=== PATIENT | female | born 1945 | race African-American/Black ===

== ENCOUNTER 2017-12-30 16:25 | Emergency (ER) | payer MEDICARE ==
[2017-12-30] MEDS ORDERED: ONDANSETRON HCL INJ/PF 4 MG/2 ML SDV IV ONE (16:45)
[2017-12-30] MEDS ORDERED: MORPHINE SULFATE 10 MG/ML INJ IV ONE (16:45)
--- NOTE | 2017-12-30 16:49 | ER Document Report ---
ED Medical Screen (RME) - General Chief Complaint: Urinary Problem Stated Complaint: PELVIC SWELLING, BURNING WITH URINATION Time Seen by Provider: 12/30/17 16:37 Mode of Arrival: Ambulatory Information source: Patient Notes: 72-year-old female presents with complaint of vaginal pain and dysuria. Patient states that she has had labial and vaginal pain for several weeks with worsening of pain today. Patient has had associated nausea, vomiting. I have greeted and performed a rapid initial assessment of this patient. A comprehensive ED assessment and evaluation of the patient, analysis of test results and completion of medical decision making process we will be contacted by additional ED providers. PHYSICAL EXAMINATION: Vital signs reviewed GENERAL: Appears to be in pain, unable to sit down. NEUROLOGICAL: Normal speech, normal gait. PSYCH: Normal mood, normal affect. TRAVEL OUTSIDE OF THE [place] IN LAST 30 DAYS: No - HPI Onset: Other Quality of pain: Throbbing Associated Symptoms: Nausea, Vomiting Exacerbated by: Sitting, Walking Relieved by: Supine Similar symptoms previously: Yes Recently seen / treated by doctor: No - Related Data Allergies/Adverse Reactions: No Known Allergies Allergy (Unverified 12/30/17 16:30) Past Medical History Renal/ Medical History: Denies: Hx Peritoneal Dialysis Physical Exam - Vital signs Vitals: Temp Pulse Resp BP 98.1 F 92 18 135/56 H 12/30/17 16:31 12/30/17 16:31 12/30/17 16:31 12/30/17 16:31 Course - Vital Signs Vital signs: Temp Pulse Resp BP Pulse Ox 98.1 F 92 18 135/56 H 12/30/17 16:31 12/30/17 16:31 12/30/17 16:31 12/30/17 16:31 Doctor's Discharge - Discharge Referrals: SANDER RICO MD [Primary Care Provider] - Follow up as needed
[2017-12-30 17:21] LABS: ABSOLUTE LYMPHOCYTES (AUTO) 0.9 10^3/uL (0.5-4.7); ABSOLUTE MONOCYTES (AUTO) 0.3 10^3/uL (0.1-1.4); ABSOLUTE NEUT (AUTO) 3.9 10^3/uL (1.7-8.2); BASOPHILS % (AUTO) 0.3 % (0-2); EOSINOPHILS % (AUTO) 0.4 % (0-6); HEMATOCRIT 38.3 % (36.0-47.0); HEMOGLOBIN 12.9 g/dL (12.0-15.5); LYMPHOCYTES % (AUTO) 17.6 % (13-45); MEAN CORPUSCULAR HEMOGLOBIN 29.9 pg (27.0-33.4); MEAN CORPUSCULAR HGB CONC 33.7 g/dL (32.0-36.0); MEAN CORPUSCULAR VOLUME 89 fl (80-97); MONOCYTES % (AUTO) 5.1 % (3-13); PLATELET COUNT 118 10^3/uL (150-450); RED BLOOD COUNT 4.33 10^6/uL (3.72-5.28); RED CELL DISTRIBUTION WIDTH 13.4 % (11.5-14.0); SEGMENTED NEUTROPHILS % (AUTO) 76.6 % (42-78); TOTAL CELLS COUNTED % (AUTO) 100 %; WHITE BLOOD COUNT 5.1 10^3/uL (4.0-10.5)
[2017-12-30 17:29] LABS: ALANINE AMINOTRANSFERASE 119 U/L (9-52); ALBUMIN 4.4 g/dL (3.5-5.0); ALKALINE PHOSPHATASE 142 U/L (38-126); ANION GAP 16 (5-19); ASPARTATE AMINO TRANSFERASE 205 U/L (14-36); BILIRUBIN,DIRECT 1.7 mg/dL (0.0-0.4); BILIRUBIN,TOTAL 2.7 mg/dL (0.2-1.3); BLOOD UREA NITROGEN 14 mg/dL (7-20); CARBON DIOXIDE 22 mmol/L (22-30); CHLORIDE 100 mmol/L (98-107); GLUCOSE 196 mg/dL (75-110); POTASSIUM 3.6 mmol/L (3.6-5.0); TOTAL PROTEIN 8.5 g/dL (6.3-8.2)
[2017-12-30 19:17] LABS: APPEARANCE,URINE SLIGHTLY-CLOUDY; BILIRUBIN,URINE NEGATIVE (NEGATIVE); GLUCOSE, URINE NEGATIVE (NEGATIVE); KETONES,URINE NEGATIVE (NEGATIVE); LEUKOCYTE ESTERASE,URINE TRACE (NEGATIVE); NITRITE,URINE NEGATIVE (NEGATIVE); PROTEIN,URINE 30 mg/dL (NEGATIVE); URINE SPECIFIC GRAVITY 1.004; UROBILINOGEN,URINE NEGATIVE mg/dL (<2.0)
[2017-12-30 19:20] LABS: COLOR,URINE DARK YELLOW
[2017-12-30] MEDS ORDERED: CEFTRIAXONE INJ 1000 MG VIAL IV ONE (19:59)
--- NOTE | 2017-12-30 20:35 | ER Document Report ---
ED General - General Chief Complaint: Urinary Problem Stated Complaint: PELVIC SWELLING, BURNING WITH URINATION Time Seen by Provider: 12/30/17 16:37 Mode of Arrival: Ambulatory Notes: Patient is a 72-year-old female with a past medical history of liver cirrhosis, hypertension, does not currently follow with her primary care doctor, who presents with concerns of pain and swelling to her vaginal area "for many months ". She states that the discomfort has gotten much worse in the last several weeks prompting her to come to the emergency department. She notes a dull, throbbing, constant pain to the vaginal area. Standing seems to worsen the pain and lying down seem she has never seen an COMPLIANCE CONSULTANT regarding this concern. She denies any vaginal bleeding. She does note dysuria but no fever or constitutional symptoms. TRAVEL OUTSIDE OF THE [place] IN LAST 30 DAYS: No - Related Data Allergies/Adverse Reactions: No Known Allergies Allergy (Unverified 12/30/17 16:30) Past Medical History - General Information source: Patient - Social History Smoking Status: Current Every Day Smoker Frequency of alcohol use: Heavy Drug Abuse: None Lives with: Family Family History: Reviewed & Not Pertinent Patient has suicidal ideation: No Patient has homicidal ideation: No Renal/ Medical History: Denies: Hx Peritoneal Dialysis Review of Systems - Review of Systems Notes: Constitutional: Negative for fever. HENT: Negative for sore throat. Eyes: Negative for visual changes. Cardiovascular: Negative for chest pain. Respiratory: Negative for shortness of breath. Gastrointestinal: Negative for abdominal pain, vomiting or diarrhea. Genitourinary: Positive for dysuria and vaginal pain Musculoskeletal: Negative for back pain. Skin: Negative for rash. Neurological: Negative for headaches, weakness or numbness. 10 point ROS negative except as marked above and in HPI. Physical Exam - Vital signs Vitals: Temp Pulse Resp BP 98.1 F 92 18 135/56 H 12/30/17 16:31 12/30/17 16:31 12/30/17 16:31 12/30/17 16:31 Interpretation: Normal Notes: PHYSICAL EXAMINATION: GENERAL: Well-appearing, well-nourished and in no acute distress. HEAD: Atraumatic, normocephalic. EYES: Pupils equal round and reactive to light, extraocular movements intact, sclera anicteric, conjunctiva are normal. ENT: nares patent, oropharynx clear without exudates. Moist mucous membranes. NECK: Normal range of motion, supple without lymphadenopathy LUNGS: Breath sounds clear to auscultation bilaterally and equal. No wheezes rales or rhonchi. HEART: Regular rate and rhythm without murmurs ABDOMEN: Soft, nontender, normoactive bowel sounds. No guarding, no rebound. No masses appreciated. : Prominent uterine prolapse, engorgement of the labia majora minora EXTREMITIES: Normal range of motion, no pitting or edema. No cyanosis. NEUROLOGICAL: No focal neurological deficits. Moves all extremities spontaneously and on command. PSYCH: Normal mood, normal affect. SKIN: Warm, Dry, normal turgor, no rashes or lesions noted. Course - Re-evaluation Re-evalutation: 12/30/17 21:11 Patient presents with signs and symptoms of chronic uterine prolapse. Urinalysis is consistent with an associated cystitis. Could alternatively be contaminant secondary to the degree of uterine prolapse. 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 I have recommended that the patient follow closely with COMPLIANCE CONSULTANT for consideration of placement of a pessary. She has been started on cephalexin and given a dose of ceftriaxone here in the emergency department for treatment of a possible urinary tract infection. Culture has been sent. At this time will discharge with return precautions and follow-up recommendations. Verbal discharge instructions given a the bedside and opportunity for questions given. Medication warnings reviewed. Patient is in agreement with this plan and has verbalized understanding of return precautions and the need for primary care follow-up in the next 24-72 hours. - Vital Signs Vital signs: Temp Pulse Resp BP Pulse Ox 98.1 F 92 18 135/56 H 12/30/17 16:31 12/30/17 16:31 12/30/17 16:31 12/30/17 16:31 - Laboratory Result Diagrams: 12/30/17 17:02 12/30/17 17:02 Laboratory results interpreted by me: 12/30/17 12/30/17 12/30/17 17:02 17:02 18:51 Plt Count 118 L Glucose 196 H Total Bilirubin 2.7 H Direct Bilirubin 1.7 H AST 205 H ALT 119 H Alkaline Phosphatase 142 H Total Protein 8.5 H Urine Protein 30 H Urine Blood LARGE H Ur Leukocyte Esterase TRACE H Discharge - Discharge Clinical Impression: Uterine prolapse Urinary tract infection Qualifiers: Urinary tract infection type: acute cystitis Hematuria presence: with hematuria Qualified Code(s): N30.01 - Acute cystitis with hematuria Condition: Good Disposition: HOME, SELF-CARE Additional Instructions: Your pain and swelling is due to a uterine prolapse which in your uterus stings down through your vaginal canal. There is a surgical correction to this and I recommend that you see the COMPLIANCE CONSULTANT listed in the paperwork as soon as possible to discuss this procedure. Your urinalysis also suggests a urinary tract infection your being started on antibiotics to treat this. Please return if you develop fever greater than 100.4 F, worsening pain, become unable to urinate, or have any other symptoms that are worrisome to you. Prescriptions: Cephalexin Monohydrate [Keflex 500 mg Capsule] 500 mg PO Q6H 5 Days capsule Referrals: SANDER RICO MD [ACTIVE STAFF] - Follow up as needed PEARL GOLDSMITH MD [ACTIVE STAFF] - Follow up tomorrow
[2017-12-30] MEDS ORDERED: HYDROCODONE/ACETAMINOPHEN 5-325 MG (6 TAB/ER DISP) PO PRN (20:56)
[2017-12-30 21:32] VITALS: BP 107/52
== END 2017-12-30 21:21 | disposition home or self-care (01) ==
LOC: ER 16:25
DX: N30.01 Acute cystitis with hematuria (principal); N81.4 Uterovaginal prolapse, unspecified; F17.200 Nicotine dependence, unspecified, uncomplicated
CPT/HCPCS: 99284; 96375; 96365; 36415; 87086; 85025; 80053; 81001; J2270; J0696; J2405; A9270

== ENCOUNTER 2018-02-11 16:33 | Emergency (ER) | payer MEDICARE, OTHER ==
[2018-02-11 16:45] VITALS: BP 151/62
--- NOTE | 2018-02-11 16:51 | ER Document Report ---
ED Medical Screen (RME) - General Chief Complaint: Urinary Retention Stated Complaint: URINE RETENTION/NEED BLADDER DRAINED Time Seen by Provider: 02/11/18 16:48 Notes: Patient is a 72-year-old female with history of bladder prolapse that presents to the emergency department for chief complaint of suprapubic pain. Discussed case with the patient's [employer] Dr. Dawkins, who stated the patient has a grade 3 /4 bladder prolapse, declined any treatments with pessary use, advised placing Mazariegos catheter, this was discussed with the patient and she was agreeable to. ROS: Other than noted above, the 12 point review of systems was reviewed with the patient and were negative, all pertinent findings are included in the HPI. PHYSICAL EXAMINATION: Vital signs reviewed. GENERAL: Elderly female, appears uncomfortable on exam HEAD: Atraumatic, normocephalic. EYES: Pupils equal round extraocular movements intact, conjunctiva are normal. ENT: Nares patent NECK: Normal range of motion CV: Heart regular rate and rhythm LUNGS: No respiratory distress Musculoskeletal: Normal range of motion NEUROLOGICAL: Normal speech PSYCH: Normal mood, normal affect. MDM: Patient seen and examined for rapid initial assessment. Vital signs reviewed. A comprehensive ED assessment and evaluation of the patient, analysis of test results and completion of the medical decision making process will be conducted by additional ED providers. *Note is created using voice recognition software and may contain spelling, syntax or grammatical errors. TRAVEL OUTSIDE OF THE [place] IN LAST 30 DAYS: No - Related Data Allergies/Adverse Reactions: No Known Allergies Allergy (Unverified 12/30/17 16:30) Past Medical History - Social History Chew tobacco use (# tins/day): No Frequency of alcohol use: None Drug Abuse: None Renal/ Medical History: Denies: Hx Peritoneal Dialysis Physical Exam - Vital signs Vitals: Temp Pulse Resp BP Pulse Ox 98.4 F 86 14 151/62 H 98 02/11/18 16:42 02/11/18 16:42 02/11/18 16:42 02/11/18 16:42 02/11/18 16:42 Course - Vital Signs Vital signs: Temp Pulse Resp BP Pulse Ox 98.4 F 86 14 151/62 H 98 02/11/18 16:42 02/11/18 16:42 02/11/18 16:42 02/11/18 16:42 02/11/18 16:42
[2018-02-11 18:38] LABS: ABSOLUTE LYMPHOCYTES (AUTO) 0.8 10^3/uL (0.5-4.7); ABSOLUTE MONOCYTES (AUTO) 0.2 10^3/uL (0.1-1.4); ABSOLUTE NEUT (AUTO) 3.3 10^3/uL (1.7-8.2); BASOPHILS % (AUTO) 0.4 % (0-2); EOSINOPHILS % (AUTO) 0.5 % (0-6); HEMATOCRIT 36.5 % (36.0-47.0); HEMOGLOBIN 12.4 g/dL (12.0-15.5); LYMPHOCYTES % (AUTO) 18.1 % (13-45); MEAN CORPUSCULAR HGB CONC 33.9 g/dL (32.0-36.0); MEAN CORPUSCULAR VOLUME 89 fl (80-97); MONOCYTES % (AUTO) 5.5 % (3-13); RED BLOOD COUNT 4.11 10^6/uL (3.72-5.28); RED CELL DISTRIBUTION WIDTH 13.5 % (11.5-14.0); SEGMENTED NEUTROPHILS % (AUTO) 75.5 % (42-78); TOTAL CELLS COUNTED % (AUTO) 100 %; WHITE BLOOD COUNT 4.3 10^3/uL (4.0-10.5)
[2018-02-11 18:46] LABS: ANION GAP 10 (5-19); BLOOD UREA NITROGEN 13 mg/dL (7-20); CALCIUM 9.7 mg/dL (8.4-10.2); CARBON DIOXIDE 27 mmol/L (22-30); CHLORIDE 103 mmol/L (98-107); GLUCOSE 140 mg/dL (75-110); POTASSIUM 4.1 mmol/L (3.6-5.0); SODIUM 140.2 mmol/L (137-145)
[2018-02-11] MEDS ORDERED: MORPHINE SULFATE 10 MG/ML INJ IV ONE (18:57)
[2018-02-11] MEDS ORDERED: ONDANSETRON HCL INJ/PF 4 MG/2 ML SDV IV ONE (18:57)
[2018-02-11 19:08] LABS: PLATELET COUNT 97 10^3/uL (150-450)
[2018-02-11] MEDS ORDERED: HYDROMORPHONE HCL INJ/PF 2 MG/ML AMPULE IV ONE (20:22)
[2018-02-11] MEDS ORDERED: LIDOCAINE 2% URO-JET 5 ML KIT MM ONE (20:23)
[2018-02-11 22:25] LABS: APPEARANCE,URINE CLEAR; BILIRUBIN,URINE NEGATIVE (NEGATIVE); COLOR,URINE RED; GLUCOSE, URINE NEGATIVE (NEGATIVE); KETONES,URINE NEGATIVE (NEGATIVE); LEUKOCYTE ESTERASE,URINE TRACE (NEGATIVE); NITRITE,URINE NEGATIVE (NEGATIVE); PROTEIN,URINE 100 mg/dL (NEGATIVE); URINE SPECIFIC GRAVITY 1.006; UROBILINOGEN,URINE NEGATIVE mg/dL (<2.0)
--- NOTE | 2018-02-11 22:30 | ER Document Report ---
ED General - General Chief Complaint: Urinary Retention Stated Complaint: URINE RETENTION/NEED BLADDER DRAINED Time Seen by Provider: 02/11/18 16:48 TRAVEL OUTSIDE OF THE [place] IN LAST 30 DAYS: No - Related Data Allergies/Adverse Reactions: No Known Allergies Allergy (Unverified 12/30/17 16:30) Past Medical History - Social History Smoking Status: Current Every Day Smoker Chew tobacco use (# tins/day): No Frequency of alcohol use: None Drug Abuse: None Family History: Reviewed & Not Pertinent Patient has suicidal ideation: No Patient has homicidal ideation: No Renal/ Medical History: Denies: Hx Peritoneal Dialysis Physical Exam - Vital signs Vitals: Temp Pulse Resp BP Pulse Ox 98.4 F 86 14 151/62 H 98 02/11/18 16:42 02/11/18 16:42 02/11/18 16:42 02/11/18 16:42 02/11/18 16:42 Course - Vital Signs Vital signs: Temp Pulse Resp BP Pulse Ox 98.4 F 86 14 151/62 H 98 02/11/18 16:42 02/11/18 16:42 02/11/18 16:42 02/11/18 16:42 02/11/18 16:42 - Laboratory Result Diagrams: 02/11/18 18:27 02/11/18 18:27 Laboratory results interpreted by me: 02/11/18 02/11/18 02/11/18 18:27 18:27 20:57 Plt Count 97 L Glucose 140 H Urine Protein 100 H Urine Blood LARGE H Ur Leukocyte Esterase TRACE H Discharge - Discharge Clinical Impression: Urinary retention, Bladder prolapse Instructions: Urinary Retention ([facility]), Mazariegos Catheter Care ([facility]) Additional Instructions: Urinalysis today does not show any signs of infection. Because of the bladder prolapse scraping of the urethra and putting in the Mazariegos catheter he may see some blood in your urine for the next few days. Please follow-up with your OB/ [facility] return to ER symptoms worsen. Referrals: CLAIRE HENDERSON MD [Primary Care Provider] - Follow up as needed
[2018-02-11] MEDS ORDERED: TRAMADOL HCL 50 MG TABLET PO ONE (22:31)
--- NOTE | 2018-02-11 22:31 | ER Document Report ---
ED General - General Chief Complaint: Urinary Retention Stated Complaint: URINE RETENTION/NEED BLADDER DRAINED Time Seen by Provider: 02/11/18 16:48 TRAVEL OUTSIDE OF THE [place] IN LAST 30 DAYS: No - HPI Patient complains to provider of: Urinary retention Notes: Patient was sent to the ER for urinary retention by [employer]. Patient was seen by triage provider notes provided below Patient is a 72-year-old female with history of bladder prolapse that presents to the emergency department for chief complaint of suprapubic pain. Discussed case with the patient's [employer] Dr. Henderson, who stated the patient has a grade 3 /4 bladder prolapse, declined any treatments with pessary use, advised placing Mazariegos catheter, this was discussed with the patient and she was agreeable to. Patient upon my evaluation looks to be significant pain. Patient states this problem has occurred before she has denied a Mazariegos catheter in the past. Upon my evaluation patient at this time is also declining a Mazariegos catheter and leg bag. Patient states she really does have a straight cath and be discharged home. Patient denies any fever chills nausea by diarrhea denies any use of over -the-counter medications. - Related Data Allergies/Adverse Reactions: No Known Allergies Allergy (Unverified 12/30/17 16:30) Past Medical History - Social History Smoking Status: Current Every Day Smoker Chew tobacco use (# tins/day): No Frequency of alcohol use: None Drug Abuse: None Family History: Reviewed & Not Pertinent Patient has suicidal ideation: No Patient has homicidal ideation: No Renal/ Medical History: Denies: Hx Peritoneal Dialysis Review of Systems - Review of Systems Constitutional: No symptoms reported EENT: No symptoms reported Cardiovascular: No symptoms reported Respiratory: No symptoms reported Gastrointestinal: No symptoms reported Genitourinary: Retention Female Genitourinary: No symptoms reported Musculoskeletal: No symptoms reported Skin: No symptoms reported Hematologic/Lymphatic: No symptoms reported Neurological/Psychological: No symptoms reported -: Yes All other systems reviewed and negative Physical Exam - Vital signs Vitals: Temp Pulse Resp BP Pulse Ox 98.4 F 86 14 151/62 H 98 02/11/18 16:42 02/11/18 16:42 02/11/18 16:42 02/11/18 16:42 02/11/18 16:42 Interpretation: Normal - General General appearance: Appears well, Alert - HEENT Head: Normocephalic, Atraumatic Eyes: Normal Pupils: PERRL - Respiratory Respiratory status: No respiratory distress Chest status: Nontender Breath sounds: Normal Chest palpation: Normal - Cardiovascular Rhythm: Regular Heart sounds: Normal auscultation Murmur: No - Abdominal Inspection: Normal Distension: No distension Bowel sounds: Normal Tenderness: Nontender Organomegaly: No organomegaly - Genitourinary Notes: Examination of the vaginal region does reveal a prolapsed - Back Back: Normal, Nontender - Extremities General upper extremity: Normal inspection, Nontender, Normal color, Normal ROM , Normal temperature General lower extremity: Normal inspection, Nontender, Normal color, Normal ROM , Normal temperature, Normal weight bearing. No: Sridhar's sign - Neurological Neuro grossly intact: Yes Cognition: Normal Orientation: AAOx4 Uriel Coma Scale Eye Opening: Spontaneous Napoleon Coma Scale Verbal: Oriented Uriel Coma Scale Motor: Obeys Commands Napoleon Coma Scale Total: 15 Speech: Normal Motor strength normal: LUE, RUE, LLE, RLE Sensory: Normal - Psychological Associated symptoms: Normal affect, Normal mood - Skin Skin Temperature: Warm Skin Moisture: Dry Skin Color: Normal Course - Re-evaluation Re-evalutation: 02/11/18 23:27 Laboratory studies not revealing acute pathology. Nursing staff is able to talk the patient into having Mazariegos catheter placed approximately 500 cc of urine was removed from the bladder with instant relief of the patient's discomfort. Patient urinalysis not show any significant pathology. Patient will be discharged home follow-up for [employer] [facility] - Vital Signs Vital signs: Temp Pulse Resp BP Pulse Ox 98.4 F 86 14 151/62 H 98 02/11/18 16:42 02/11/18 16:42 02/11/18 16:42 02/11/18 16:42 02/11/18 16:42 - Laboratory Result Diagrams: 02/11/18 18:27 02/11/18 18:27 Laboratory results interpreted by me: 02/11/18 02/11/18 02/11/18 18:27 18:27 20:57 Plt Count 97 L Glucose 140 H Urine Protein 100 H Urine Blood LARGE H Ur Leukocyte Esterase TRACE H Discharge - Discharge Clinical Impression: Urinary retention, Bladder prolapse Condition: Good Disposition: HOME, SELF-CARE Instructions: Mazariegos Catheter Care ([facility]), Urinary Retention ([facility]) Additional Instructions: Urinalysis today does not show any signs of infection. Because of the bladder prolapse scraping of the urethra and putting in the Mazariegos catheter he may see some blood in your urine for the next few days. Please follow-up with your OB/ [employer] return to ER symptoms worsen. Prescriptions: Ibuprofen [Motrin 600 mg Tablet] 600 mg PO Q8HP PRN #21 tablet PRN Reason: Tramadol HCl [Ultram 50 mg Tablet] 50 mg PO ASDIR PRN #14 tablet PRN Reason: Referrals: CLAIRE HENDERSON MD [Primary Care Provider] - Follow up as needed
== END 2018-02-11 22:42 | disposition home or self-care (01) ==
LOC: ER 16:33
DX: R33.9 Retention of urine, unspecified (principal); N81.10 Cystocele, unspecified; R10.30 Lower abdominal pain, unspecified; F17.200 Nicotine dependence, unspecified, uncomplicated
CPT/HCPCS: 99284; 51702; 96374; 96375; 36415; 87086; 85025; 80048; 81001; J2270; J1170; J2405; A9270 ×2; J3490